=== PATIENT | male | born 1955 | race Caucasian/White ===

== ENCOUNTER 2018-08-04 10:26 | Day surgery (SDC) | payer MEDICAID ==
[2018-08-04] MEDS ORDERED: EPHEDRINE SULFATE 50 MG/ML ML IV ONE (10:27)
[2018-08-04] MEDS ORDERED: MIDAZOLAM HCL 2MG/2ML VIAL IV ONE (10:27)
[2018-08-04] MEDS ORDERED: LIDOCAINE 2% MDV (20MG/ML) 20ML VIAL IV ONE (10:27)
[2018-08-04] MEDS ORDERED: PROPOFOL 10 MG/ML VIAL IV ONE (10:27)
--- NOTE | 2018-08-05 09:30 | Operative Note ---
DATE OF SURGERY: 08/04/2018 OPERATION: COLONOSCOPY to the cecum with cold snare polypectomy x3 and electrocautery snare polypectomy x1. INDICATION: Probably surveillance for colon polyps. The patient reports that his last colonoscopy was more than 10 years ago and he thought that perhaps he had polyps in the past but was not clear. ANESTHESIA: Intravenous sedation was administered by the department of anesthesiology and included Diprivan titrated to effect. PROCEDURE: Following informed consent from this alert individual including a discussion of the risks and benefits of the procedure and an opportunity for the patient to ask questions, the patient was in the left lateral decubitus position. A digital rectal examination was performed. No abnormalities were noted. Following this, the Olympus [id number] video colonoscope was inserted into the rectum without resistance. The rectal mucosa had a normal appearance with normal folds and distensibility. The colonoscope was advanced up through the bowel to the level of the cecum without much difficulty. Throughout the bowel the mucosa appeared normal, the folds were normal, and the bowel was fairly well distensible. There were polyps noted which were removed upon withdrawal. The cecum was evaluated and found to be free from changes. The ileocecal valve and appendiceal orifice were noted. Retroflexion in the cecum did reveal a polyp measuring 6 mm in size which was removed with cold snare polypectomy and suctioned through the colonoscope into a collection trap. The colon preparation overall was good. There were 2 additional polyps noted in the transverse colon, one measuring 6 mm in size and one 8 mm in size. The smaller polyp was removed with cold snare polypectomy and the larger polyp removed with electrocautery snare. There was a 4th polyp noted in the descending colon measuring 6 mm in size likewise removed with cold snare polypectomy and suctioned through the colonoscope into a collection trap. The colonoscope was farther withdrawn back through the sigmoid colon into the rectum. Retroflexion in the rectum revealed small internal hemorrhoids. Also noted upon withdrawal was a lipoma in the ascending colon. The endoscope was straightened and removed. The patient tolerated the procedure well and was returned to the recovery area in stable condition. IMPRESSION: 1. Four colon polyps removed with one in the ascending colon, one in the descending colon, and two in the transverse colon. One larger polyp in the transverse colon was 8 mm in size and removed with electrocautery snare and the other was 6 mm in size and removed with cold snare polypectomy. 2. There was a lipoma noted in the ascending colon. 3. Small internal hemorrhoids. RECOMMENDATIONS: Further recommendations will be forthcoming pending results of pathology obtained today. Followup will also be with Dr. Coffman. As always, thank you for allowing me to participate in the care of your patient. CC: MD JI Natarajan
== END 2018-08-04 13:12 | disposition home or self-care (01) ==
LOC: HOP 10:26
PROVIDERS: ATTEND Internal Medicine Gastroenterology
DX: Z12.11 Encounter for screening for malignant neoplasm of colon (principal); D12.2 Benign neoplasm of ascending colon; D12.4 Benign neoplasm of descending colon; D12.3 Benign neoplasm of transverse colon; D17.79 Benign lipomatous neoplasm of other sites; E11.9 Type 2 diabetes mellitus without complications; I10 Essential (primary) hypertension; E78.00 Pure hypercholesterolemia, unspecified